=== PATIENT | female | born 1990 | race Caucasian/White ===

== ENCOUNTER 2017-10-28 21:11 | Emergency (ER) | payer SELFPAY ==
[~2017-10-28] VITALS: Ht 175.3 cm; Wt 90.9 kg
[2017-10-28 21:20] VITALS: BP 120/72
--- NOTE | 2017-10-28 21:25 | NUR ---
PT ASSISTED BACK TO LOBBY
--- NOTE | 2017-10-28 22:58 | NUR ---
PT AMBULATED TO BED 4
--- NOTE | 2017-10-28 23:07 | NUR ---
PT RETURN FROM XRAY
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
--- NOTE | 2017-10-28 23:33 | NUR ---
Dr. Kennedy evaluating patient at bedside.
[2017-10-29] MEDS ORDERED: IBUPROFEN 600 MG TAB PO ONE (00:50)
[2017-10-29] MEDS ORDERED: traMADol 50 MG TAB PO ONE (01:00)
[2017-10-29 01:31] VITALS: BP 128/72
--- NOTE | 2017-10-29 01:31 | NUR ---
Patient discharged with v/s stable. Written and verbal after care instructions given and explained. Patient alert, oriented and verbalized understanding of instructions. Ambulatory with steady gait. All questions addressed prior to discharge. ID band removed. Patient advised to follow up with PMD. Rx of ULTRAM, IBUPROFEN given. Patient educated on indication of medication including possible reaction and side effects. Opportunity to ask questions provided and answered.
== END 2017-10-29 01:31 | disposition home or self-care (01) ==
LOC: MED 21:11
DX: S63.613A Unspecified sprain of left middle finger, initial encounter (principal); W23.0XXA Caught, crushed, jammed, or pinched between moving objects, initial encounter; Y93.89 Activity, other specified; Y99.8 Other external cause status; Y92.89 Other specified places as the place of occurrence of the external cause; Z88.8 Allergy status to other drugs, medicaments and biological substances
CPT/HCPCS: 73140; 81002; 81025; 99284